=== PATIENT | female | born 2000 | race Caucasian/White ===

== ENCOUNTER 2024-11-30 12:49 | Outpatient (CLI) | payer BC | END 2024-11-30 13:30 | disposition home or self-care (01) | LOC: NST 12:49 | PROVIDERS: ATTEND Obstetrics & Gynecology Gynecology | DX: Z34.83 Encounter for supervision of other normal pregnancy, third trimester (principal) ==

== ENCOUNTER 2024-12-07 12:35 | Outpatient (CLI) | payer BC | END 2024-12-07 13:09 | disposition home or self-care (01) | LOC: NST 12:35 | PROVIDERS: ATTEND Obstetrics & Gynecology | DX: Z34.83 Encounter for supervision of other normal pregnancy, third trimester (principal) ==

== ENCOUNTER 2024-12-12 13:30 | Inpatient (IN) | payer BC ==
[~2024-12-12] VITALS: Ht 160 cm; Wt 3.2 kg
[2024-12-14 12:00] VITALS: BP 133/89; O2SAT 98
[2024-12-14] MEDS ORDERED: CITRIC ACID/SODIUM CITRATE 30 ML BLIST.PACK PO SCH (13:15)
[2024-12-14] MEDS ORDERED: RINGERS SOLUTION,LACTATED 1,000 ML IV SCH ×2 (13:15→15:45)
[2024-12-14] MEDS ORDERED: CEFAZOLIN SODIUM 1,000 MG VIAL IV SCH (13:15)
[2024-12-14 14:23] LABS: BASO % 0.4 % (0.1-1.2); EOS # 0.12 (0.04-0.54); EOS % 1.6 % (0.7-7.0); LYMPH # 1.14 (1.18-3.74); LYMPH % 15.5 % (19.3-53.1); MEAN PLATELET VOLUME 10.30 fl (9.4-12.4); MONO # 0.50 (0.24-0.82); MONO % 6.8 % (4.7-12.5); NEUT # 5.53 (1.56-6.13); NEUT % 75.3 % (34.0-71.1); RED CELL DISTRIBUTION WIDTH 13.0 % (11.6-14.4)
[2024-12-14] MEDS ORDERED: OXYTOCIN 10 UNITS/ML VIAL ONE ×2 (14:45→18:05)
[2024-12-14] MEDS ORDERED: ERYTHROMYCIN BASE OPHT 1GM EACH TUBE OP ONE (14:45)
[2024-12-14 15:12] LABS: ALT/SGPT 22.0 U/L (12-78); AST/SGOT 18.0 U/L (15-37); BILIRUBIN TOTAL 0.64 mg/dL (0.3-1.2); BUN CREA RATIO 24.0 (7.0-25.0); CREATININE SERUM 0.46 mg/dL (0.55-1.02); GFR 166.89; GLOBULINA 3.4 G/DL (2.4-3.5); GLUCOSE FASTING 76.0 mg/dL (65-100); OSMOLALITY SERUM 278.0 MOSM/KG (275-295)
[2024-12-14 15:23] LABS: INR < 0.93
[2024-12-14] MEDS ORDERED: OXYTOCIN 1,000 ML IV SCH (15:45)
[2024-12-14] MEDS ORDERED: MORPHINE SULFATE 4 MG/ML CARTRIDGE IV PRN (15:45)
[2024-12-14] MEDS ORDERED: MAGNESIUM SULFATE IN WATER 500 ML IV SCH (15:45)
[2024-12-14] MEDS ORDERED: SIMETHICONE 125 MG CAPSULE PO SCH (17:00)
[2024-12-14] MEDS ORDERED: GABAPENTIN 300 MG CAPSULE PO SCH (17:00)
[2024-12-14] MEDS ORDERED: KETOROLAC TROMETHAMINE 30 MG VIAL ONE (17:09)
[2024-12-14] MEDS ORDERED: MAGNESIUM SULFATE IN WATER 0.04 GM/ML IV.SOLN IV ONE (17:37)
[2024-12-14] MEDS ORDERED: KETOROLAC TROMETHAMINE 30 MG VIAL IV SCH (18:00)
[2024-12-14] MEDS ORDERED: ONDANSETRON HCL 2 MG/ML VIAL IV SCH (18:00)
[2024-12-14] MEDS ORDERED: ACETAMINOPHEN 500 MG GEL..CAP PO SCH (18:00)
[2024-12-14 19:28] VITALS: BP 140/80
[2024-12-15 00:06] VITALS: BP 139/86
[2024-12-15 07:35] LABS: BASO % 0.3 % (0.1-1.2); EOS # 0.13 (0.04-0.54); EOS % 1.2 % (0.7-7.0); LYMPH # 1.24 (1.18-3.74); LYMPH % 11.8 % (19.3-53.1); MEAN PLATELET VOLUME 9.90 fl (9.4-12.4); MONO # 0.72 (0.24-0.82); MONO % 6.8 % (4.7-12.5); NEUT # 8.39 (1.56-6.13); NEUT % 79.6 % (34.0-71.1); RED CELL DISTRIBUTION WIDTH 12.7 % (11.6-14.4)
[2024-12-15] MEDS ORDERED: OxyCODONE HCL 5 MG TABLET (ROXICODONE) PO PRN (08:00)
[2024-12-15] MEDS ORDERED: KETOROLAC TROMETHAMINE 10 MG TABLET PO SCH (08:00)
[2024-12-15 08:06] LABS: ALT/SGPT 17.0 U/L (12-78); AST/SGOT 23.0 U/L (15-37); BILIRUBIN TOTAL 0.73 mg/dL (0.3-1.2); BUN CREA RATIO 18.0 (7.0-25.0); CREATININE SERUM 0.39 mg/dL (0.55-1.02); GFR 201.91; GLOBULINA 3.3 G/DL (2.4-3.5); GLUCOSE FASTING 73.0 mg/dL (65-100); OSMOLALITY SERUM 278.0 MOSM/KG (275-295)
[2024-12-15 08:37] VITALS: BP 130/60; BP 143/93
[2024-12-15] MEDS ORDERED: DOCUSATE SODIUM 100MG CAP PO SCH (09:00)
[2024-12-15 12:45] VITALS: BP 147/87
[2024-12-15 17:58] VITALS: BP 134/86
[2024-12-16 00:05] VITALS: BP 129/78
[2024-12-16 09:31] VITALS: BP 143/90
[2024-12-16 09:32] VITALS: BP 170/80
[2024-12-16 10:08] VITALS: BP 140/80
[2024-12-16] MEDS ORDERED: NIFEDIPINE 30 MG TAB.SA.OSM PO SCH (12:00)
[2024-12-16 16:00] VITALS: BP 137/81
[2024-12-16 17:23] LABS: BASO % 0.2 % (0.1-1.2); EOS # 0.14 (0.04-0.54); EOS % 1.2 % (0.7-7.0); LYMPH # 1.69 (1.18-3.74); LYMPH % 15.0 % (19.3-53.1); MEAN PLATELET VOLUME 9.40 fl (9.4-12.4); MONO # 0.82 (0.24-0.82); MONO % 7.3 % (4.7-12.5); NEUT # 8.59 (1.56-6.13); NEUT % 75.9 % (34.0-71.1); RED CELL DISTRIBUTION WIDTH 13.2 % (11.6-14.4)
[2024-12-16 17:53] LABS: ALT/SGPT 20.0 U/L (12-78); AST/SGOT 19.0 U/L (15-37); BILIRUBIN TOTAL 0.7 mg/dL (0.3-1.2); BUN CREA RATIO 21.0 (7.0-25.0); CREATININE SERUM 0.52 mg/dL (0.55-1.02); GFR 144.87; GLOBULINA 3.7 G/DL (2.4-3.5); GLUCOSE FASTING 105.0 mg/dL (65-100); OSMOLALITY SERUM 288.0 MOSM/KG (275-295)
[2024-12-16 22:30] VITALS: BP 144/82
[2024-12-17 00:03] VITALS: BP 145/80
[2024-12-17 08:00] VITALS: BP 135/80
== END 2024-12-17 12:43 | disposition home or self-care (01) | DRG 788 ==
LOC: LDR 12-14 11:48 → OB/GYN 12-14 17:00
PROVIDERS: Obstetrics & Gynecology; ADMIT Obstetrics & Gynecology; ATTEND Obstetrics & Gynecology
PROC: 4A1HXCZ Monitoring of Products of Conception, Cardiac Rate, External Approach (ICD-10-PCS; 2024-12-14)
PROC: 10D00Z1 Extraction of Products of Conception, Low, Open Approach (ICD-10-PCS; principal; 2024-12-14 15:45)
DX: O32.1XX0 Maternal care for breech presentation, not applicable or unspecified (principal); O14.14 Severe pre-eclampsia complicating childbirth; Z3A.38 38 weeks gestation of pregnancy; Z37.0 Single live birth